=== PATIENT | male | born 1940 | race Caucasian/White ===

== ENCOUNTER → 2019-01-13 | Outpatient (REF) | payer MEDICARE ==
[~2019-01-13] MED LIST: ALBUTEROL4 M1 OR; BABY ASPIRIN81 MG OR; FLONASE NASAL50 MCG; HYTRIN5 MG OR; LUNESTA1 MG OR; MULTI VIT OR; NYSTATIN100000 M1 MT; PENICILLN VK500 MG OR; PROSCAR OR; SYMBICORT1 AE1 IN; XANAX0.5 MG OR
[2019-01-13 17:32] LABS: IMMATURE GRANULOCYTES 0.5 % (0.0-5.0); MEAN CELL VOLUME 99.5 fL CALC (80.0-100.0); MEAN CORPUSCULAR HGB 30.8 pG CALC (26.0-32.0); NEUT# 5.26 thou/uL (1.82-7.42); RED BLOOD COUNT 4.22 mill/uL (4.70-6.10); RED CELL DISTRI WIDTH 12.8 % (11.5-15.5)
[2019-01-13 17:56] LABS: ALKALINE PHOSPHATASE 89 u/l (38-126); BILIRUBIN, TOTAL 0.5 mg/dL (0.0-1.4); BUN 16 mg/dL (8-23); BUN/CREATININE RATIO 20 (12-20 (CALC)); C-REACTIVE PROTEIN < 0.5 mg/dL (0-0.9); CALCULATED LDLCHOLESTEROL 96 mg/dL (62-129 (CALC)); CHLORIDE 83 mmol/l (95-108); CHOLESTEROL HDL RATIO 2.4 (<4.4 (CALC)); CPK 33 u/l (52-200); CREATININE 0.8 mg/dL (0.7-1.3); GFR > 60 ML/MIN (>=60 (CALC)); GFR FOR AFR.AMER. > 60 ML/MIN (>=60 (CALC)); HDL CHOLESTEROL 81 mg/dL (>=40); POTASSIUM 4.2 mmol/l (3.5-5.1); SGOT/AST 28 u/l (19-48); SODIUM 131 mmol/l (137-146); TOTAL CHOLESTEROL 196 mg/dl (0-199); TOTAL PROTEIN 6.4 g/dL (6.3-8.2); TRIGLYCERIDES REFLEX TO dLDL 93 mg/dl (30-149); VLDL CHOLESTROL 19 mg/dl (0-38 (CALC))
[2019-01-13 18:00] LABS: ANION GAP 11 (6-22 (CALC))
[2019-01-13 18:15] LABS: CARBON DIOXIDE 41 mmol/l (22-30)
== END | disposition home or self-care (01) ==
LOC: LAB 14:49
PROVIDERS: ATTEND Family Medicine
DX: Z12.9 Encounter for screening for malignant neoplasm, site unspecified (principal); E78.2 Mixed hyperlipidemia; M25.50 Pain in unspecified joint; R53.83 Other fatigue; E55.9 Vitamin D deficiency, unspecified; Z12.5 Encounter for screening for malignant neoplasm of prostate